=== PATIENT | male | born 1990 | race American Indian/Alaskan Native ===

== ENCOUNTER 2018-08-05 20:40 | Emergency (ER) | payer OTHER ==
[2018-08-05 20:49] VITALS: RESP 18; O2SAT 98
[2018-08-05] MEDS ORDERED: Lidocaine 2% w Epi 1:100,000 Inj IJ ONE (21:03)
--- NOTE | 2018-08-05 21:12 | ED PDOC ---
HPI: Head Injury Time Seen by Provider: 08/05/18 20:49 Chief Complaint (Nursing): Abnormal Skin Integrity Chief Complaint (Provider): head injury Additional Complaint(s): Pt is poor historian due to intoxication Presents with head injury and forehead laceration EMS report that bouncers were with patient on their arrival and report he had fallen. Pt unable to recall what happened. Requesting his parents be called. Past Medical History Reviewed: Historical Data, Nursing Documentation, Vital Signs Vital Signs: Last Vital Signs Temp 98.2 F 08/05/18 20:44 Pulse 88 08/05/18 20:44 Resp 18 08/05/18 20:44 BP 127/100 H 08/05/18 20:44 Pulse Ox 98 08/05/18 20:44 - Medical History Other PMH: "Enlarged heart" - Surgical History Other surgeries: Cardiac surgery - Family History Family History: States: Unknown Family Hx - Allergies Allergies/Adverse Reactions: Allergies Allergy/AdvReac Type Severity Reaction Status Date / Time codeine Allergy RASH Verified 08/05/18 20:49 Review of Systems Review Of Systems: ROS cannot be obtained secondary to pt's inabilty to answer questions. Physical Exam - Reviewed Nursing Documentation Reviewed: Yes Vital Signs Reviewed: Yes - Physical Exam Appears: Positive for: In Acute Distress (intoxicated, confused) Head Exam: Positive for: NORMOCEPHALIC (RIGHT forehead: irregular vertical with slight slant towards midline laceration 3cm with contused epidermal tissue, oozing) Skin: Positive for: Warm, Dry Eye Exam: Positive for: EOMI, PERRL, Conjunctival injection. Negative for: Nystagmus ENT: Positive for: Normal ENT Inspection Neck: Positive for: Painless ROM, Supple, Trachea Midline Cardiovascular/Chest: Positive for: Regular Rate, Rhythm Respiratory: Negative for: Accessory Muscle Use, Respiratory Distress Gastrointestinal/Abdominal: Positive for: Soft. Negative for: Tenderness Back: Positive for: Normal Inspection. Negative for: Vertebral Tenderness Extremity: Positive for: Normal ROM. Negative for: Deformity Neurologic/Psych: Positive for: Gait (unsteady), Other (slurred). Negative for: Facial Droop - ECG O2 Sat by Pulse Oximetry: 98 Pulse Ox Interpretation: Normal - Progress ED Course And Treament: On arrival pt very uncooperative but also somewhat confused. Repeatedly asks to speak to parents or have them called, but he has spoken to them and he is reminded that they are on their way. He frequently needs redirection to stay in room. He is unsteady. Anticipating arrival of parents, so no sedation given at this time. Wound repaired without difficulty See procedure note EXAM: CT Head without Intravenous Contrast. CLINICAL HISTORY: Head injury, right side frontal TECHNIQUE: Axial computed tomography images of the head/brain without intravenous contrast. 1075.78 mGy-cm COMPARISON: None provided. FINDINGS: BRAIN No acute intraparenchymal hemorrhage. No mass lesion. No CT evidence for acute territorial infarct. No midline shift or extra-axial collections. VENTRICLES: No hydrocephalus. ORBITS: The orbits are unremarkable. SINUSES AND MASTOIDS: The paranasal sinuses and mastoid air cells are clear. BONES: No fracture. SOFT TISSUES: Forehead swelling is seen. IMPRESSION: No acute intracranial abnormality. Forehead swelling. Electronically signed on Aug 05, 2018 9:32:21 PM EST by: Andrés Cristobal M.D., VICTORINO Certified By [facility] Trained MRI and CT Specialist 10p Parents arrived. Despite requesting his parents since his arrival, the patient unexpectedly became even more uncooperative and unable to redirect. Parents attempting to assume his care, but he is refusing to cooperate with parents as well, attempting to ambulate despite unsteady gait and just leave ER to go to [place] without them. After long discussion with parents, pt restrained for safety and medicated for what appears to be alcohol-induced agitation. 11:30p Pt continues to be uncooperative despite multiple attempts to redirect. Additional Geodon ordered. 12am Endorsed to Dr Tom noguera'ing sobriety. Procedures - Time-Out Type of Procedure: Forehead laceration repair Correct Patient (with visual ID + MR# on ID Band): Yes Correct Procedure: Yes Correct Site Marked: NA X-Ray Marked: NA Physician Name: Harman - Laceration/Wound Repair Right Face Wound Length (cm): 3 Wound's Depth, Shape: superficial, irregular, contused tissue (galea intact) Wound Explored: clean Irrigated w/ Saline (ccs): 200 Betadine Prep?: Yes Anesthesia: Lidocaine w/ Epi (2% 2ml) Wound Repaired With: Sutures (interrupted) Suture Size/Type: 5:0, proline Number of Sutures: 5 Layer Closure?: No Wound Complexity: Simple Disposition - Clinical Impression Clinical Impression: Head injury, Alcohol intoxication, Forehead laceration - Disposition Disposition: Transfer of Care Disposition Time: 00:00 Condition: IMPROVED Additional Instructions: KEEP WOUND CLEAN. APPLY NEOSPORIN OR BACITRACIN TWICE A DAY WITH A CLEAN BANDAGE WOUND CHECK IN 48 HOURS SUTURE REMOVAL IN 4-7 DAYS BASED ON REEVALUATION. AVOID ANY CONTACT SPORTS OR OTHER ACTIVITY THAT MAY RESULT IN RECURRENT HEAD INJURY DRINK IN MODERATION OR DON'T DRINK AT ALL Instructions: Minor Head Injury (DC), Laceration Repair With Stitches (DC) Forms: [employer] (Kiswahili), [facility] ED School/Work Excuse Print Language: MONGOLIAN
[2018-08-05] MEDS ORDERED: DiphenhydrAMINE 50 mg/ml Inj IM STA (22:31)
[2018-08-05] MEDS ORDERED: Sterile Water 10 ML IV ONE (23:48)
[2018-08-05 23:51] LABS: BARBITURATES, UR NEGATIVE (NEGATIVE); BENZODIAZEPINES, UR NEGATIVE (NEGATIVE); OPIATES, UR NEGATIVE (NEGATIVE); PHENCYCLIDINE, UR NEGATIVE (NEGATIVE)
--- NOTE | 2018-08-06 00:34 | ED PDOC ---
- ECG O2 Sat by Pulse Oximetry: 98 Medical Decision Making Medical Decision Making: Pt now calm and cooperative. Able to state date and location. Pt denies pain, SOB, CP. Both parents and patient agree that the patient is safe to go home with his parents. Return parameters discussed. 0100 On attempt to get patient dressed, patient was asleep (due to Geodon). Parents agreed to let patient stay in the emergency department until sober and awake. Pt remains on 1:1 with stable vitals on the monitor. 521 Pt now awake, alert, and cooperative. requesting to go home. Discharge paperwork given. Disposition - Clinical Impression Clinical Impression: Head injury, Alcohol intoxication, Forehead laceration - Disposition Disposition: Routine/Home Disposition Time: 00:33 Condition: IMPROVED Additional Instructions: KEEP WOUND CLEAN. APPLY NEOSPORIN OR BACITRACIN TWICE A DAY WITH A CLEAN BANDAGE WOUND CHECK IN 48 HOURS SUTURE REMOVAL IN 4-7 DAYS BASED ON REEVALUATION. AVOID ANY CONTACT SPORTS OR OTHER ACTIVITY THAT MAY RESULT IN RECURRENT HEAD INJURY DRINK IN MODERATION OR DON'T DRINK AT ALL Instructions: Laceration Repair With Stitches (DC), Minor Head Injury (DC) Forms: [employer] (Vietnamese), [facility] ED School/Work Excuse Print Language: JORDANIAN
[2018-08-06 06:29] VITALS: BP 110/72; PULSE 86; TEMP 98.4
--- NOTE | 2018-08-06 09:29 | CT ---
Date of service: 08/05/2018 PROCEDURE: CT HEAD WITHOUT CONTRAST. HISTORY: Head injury alcohol coccyx a schultz COMPARISON: This the TECHNIQUE: Axial computed tomography images were obtained through the head/brain without intravenous contrast. Radiation dose: Total exam DLP = 1075.78 mGy-cm. This CT exam was performed using one or more of the following dose reduction techniques: Automated exposure control, adjustment of the mA and/or kV according to patient size, and/or use of iterative reconstruction technique. FINDINGS: HEMORRHAGE: No intracranial hemorrhage. BRAIN: No mass effect or edema. No atrophy or chronic microvascular ischemic changes. VENTRICLES: Unremarkable. No hydrocephalus. CALVARIUM: Unremarkable. There appears to be some minor right supraorbital and right scalp swelling. PARANASAL SINUSES: Unremarkable as visualized. No significant inflammatory changes. MASTOID AIR CELLS: Unremarkable as visualized. No inflammatory changes. OTHER FINDINGS: None. IMPRESSION: No acute intracranial hemorrhage. Mild right supraorbital and right frontal scalp swelling.
== END 2018-08-06 06:30 | disposition home or self-care (01) ==
LOC: H.ER 20:40
DX: F10.129 Alcohol abuse with intoxication, unspecified (principal); S01.81XA Laceration without foreign body of other part of head, initial encounter; S09.90XA Unspecified injury of head, initial encounter; W19.XXXA Unspecified fall, initial encounter; Y92.89 Other specified places as the place of occurrence of the external cause
CPT/HCPCS: 12001; 70450; 80320; 80324; 80345; 80346; 80349; 80353; 80358; 80361; 83992; 96372; 99285; J2060; J3486